=== PATIENT | male | born 1970 | race Caucasian/White ===

== ENCOUNTER 2025-01-24 20:39 | Inpatient (IN) | payer MEDICAID ==
[~2025-01-24] VITALS: Ht 172.7 cm; Wt 85.7 kg
[2025-01-25] VITALS (7 sets, daily range): BP systolic 126–159; BP diastolic 80–92; PULSE 80–87; RESP 18–20; TEMP 36.7–37.9; O2SAT 97–100
[2025-01-25 03:47] LABS: CLARITY URINE CLOUDY (CLEAR); COLOR URINE YELLOW (YELLOW); GLUCOSE URINE NEGATIVE (NEGATIVE); KETONES URINE NEGATIVE (NEGATIVE); LEUKOCYTE ESTERASE URINE 3+ (NEGATIVE); NITRITE URINE NEGATIVE (NEGATIVE); OCCULT BLOOD URINE 3+ (NEGATIVE); PH URINE 6.5 (4.5-8.0); PROTEIN URINE TRACE (NEGATIVE); SPECIFIC GRAVITY URINE 1.004 (1.005-1.030); UROBILINOGEN URINE 0.2 E.U./dL (0.2-1.0)
[2025-01-25 03:52] LABS: BASOPHILS % 0.4 % (0.0-2.0); EOSINOPHILS % 3.6 % (0.0-5.0); HEMATOCRIT. 34.6 % (42.0-52.0); HEMOGLOBIN. 11.3 g/dL (14.0-18.0); LYMPHOCYTES % 15.4 % (20.0-50.0); MEAN CORPUSCULAR HEMOGLOBIN 29.4 pg (28.0-32.0); MEAN CORPUSCULAR HGB CONC 32.7 g/dL (31.0-37.0); MEAN PLATELET VOLUME 7.2 fl (7.4-10.4); MONOCYTES % 6.7 % (2.0-8.0); NEUTROPHILS % 73.9 % (40.0-76.0); PLATELET 360 x1000/uL (130-400); RED BLOOD CELL COUNT 3.85 mill/uL (4.7-6.1)
[2025-01-25 04:07] LABS: CHLORIDE 107 mEq/L (98-107); POTASSIUM 3.9 mEq/L (3.5-5.1); SODIUM 142 mEq/L (136-145)
[2025-01-25 04:08] LABS: CARBON DIOXIDE 27 mEq/L (21-32)
[2025-01-25 04:09] LABS: CALCIUM 9.4 mg/dL (8.7-10.4)
[2025-01-25 04:13] LABS: CREATININE 0.7 mg/dL (0.6-1.3); GLUCOSE 107 mg/dL (70-105); UREA NITROGEN BLOOD 8 mg/dL (9-23)
[2025-01-25] MEDS ORDERED: ONDANSETRON HCL 4MG/2ML INJ IV PRN (05:00)
[2025-01-25] MEDS ORDERED: ACETAMINOPHEN 325MG TABLET PO PRN (05:00)
[2025-01-25] MEDS ORDERED: DOCUSATE SODIUM 100MG CAPSULE PO PRN (05:00)
[2025-01-25] MEDS ORDERED: MAGNESIUM/ALUMINUM HYDROXIDE/SIMETHICONE 30ML UDC PO PRN (05:00)
[2025-01-25] MEDS ORDERED: IPRATROPIUM/ALBUTEROL 0.5-3(2.5)MG/3ML NEB HHN PRN (05:00)
[2025-01-25] MEDS ORDERED: GUAIFENESIN 200MG/10ML SUGAR FREE UDC PO PRN (05:00)
[2025-01-25] MEDS ORDERED: DIPHENHYDRAMINE 50MG/ML VIAL IV PRN (05:00)
[2025-01-25 05:47] LABS: CREATINE KINASE 33 IU/L (46-171); PHOSPHORUS 3.4 mg/dL (2.5-4.9)
[2025-01-25 05:53] LABS: WBC URINE 50-100 /hpf (0-2)
[2025-01-25 05:54] LABS: RBC URINE 25-50 /hpf (0-2); SQUAMOUS EPITHELIAL CELL URINE NONE SEEN /lpf (RARE/1+)
[2025-01-25 05:55] LABS: BACTERIA URINE NONE SEEN; YEAST URINE 1+
[2025-01-25] MEDS ORDERED: LEVOFLOXACIN 500MG PREMIX 100 ML IV SCH (06:30)
[2025-01-25 06:50] LABS: IRON 44 ug/dL (65-175)
[2025-01-25 06:53] LABS: TOTAL IRON BINDING CAPACITY 238 ug/dl (250-425)
[2025-01-25 06:56] LABS: FOLIC ACID (FOLATE) SERUM > 20.00 ng/mL (>5.38); VITAMIN B12 SERUM 367 pg/mL (211-911)
[2025-01-25] MEDS: LEVOFLOXACIN 500MG PREMIX 100 ML IV SCH (07:07)
[2025-01-25] MEDS ORDERED: NALOXONE HCL 0.4MG/ML VIAL IV PRN (08:45)
[2025-01-25] MEDS: ENOXAPARIN 40MG/0.4ML SYR SUBCUT SCH (09:11)
[2025-01-25] MEDS: FLUCONAZOLE 100MG TABLET PO SCH (09:11)
[2025-01-25] MEDS: ACETAMINOPHEN 325MG TABLET PO PRN (09:24)
[2025-01-25 11:41] LABS: ALANINE AMINOTRANSFERASE 13 IU/L (10-49); ALBUMIN 3.8 g/dL (3.2-4.8); ASPARTATE AMINOTRANSFERASE 15 IU/L (<34); BILIRUBIN DIRECT 0.2 mg/dL (<=3.0); BILIRUBIN TOTAL 0.5 mg/dL (0.1-1.0); PROTEIN TOTAL 7.3 g/dL (6.0-8.3)
[2025-01-25] MEDS ORDERED: FLUC100T PO (14:08)
[2025-01-25] MEDS: CEFTRIAXONE 1GM/50ML 50ML IV SCH (14:39)
[2025-01-25] MEDS: IBUPROFEN 600MG TABLET PO NR (14:41)
[2025-01-25] MEDS: HYDROCODONE/ACETAMINOPHEN 5/325MG TABLET PO PRN (16:20)
[2025-01-25 17:19] LABS: CREATINE KINASE 18 IU/L (46-171)
[2025-01-26 11:48] LABS: *AMPHETAMINES SCREEN URINE NEGATIVE (NEGATIVE); *BARBITURATES SCREEN URINE NEGATIVE (NEGATIVE); *BENZODIAZEPINES SCREEN URINE NEGATIVE (NEGATIVE); *COCAINE SCREEN URINE NEGATIVE (NEGATIVE); CANNABINOID URINE SCREEN NEGATIVE (NEGATIVE); METHADONE URINE SCREEN NEGATIVE (NEGATIVE); OPIATES URINE SCREEN PRESUMPTIVE POSITIVE (NEGATIVE); PHENCYCLIDINE URINE SCREEN NEGATIVE (NEGATIVE)
[2025-01-26 11:49] LABS: ECSTASY MDMA SCREEN URINE NEGATIVE (NEGATIVE)
== END 2025-01-25 17:51 | disposition home or self-care (01) | DRG 720 ==
LOC: ER 20:39 → 8EST 01-25 03:27
PROVIDERS: ADMIT Internal Medicine; ATTEND Internal Medicine
DX: A41.9 Sepsis, unspecified organism (principal); B37.49 Other urogenital candidiasis; D64.9 Anemia, unspecified; E11.9 Type 2 diabetes mellitus without complications; I10 Essential (primary) hypertension; T83.021A Displacement of indwelling urethral catheter, initial encounter; K59.00 Constipation, unspecified; R33.8 Other retention of urine; N40.1 Benign prostatic hyperplasia with lower urinary tract symptoms; Y73.8 Miscellaneous gastroenterology and urology devices associated with adverse incidents, not elsewhere classified; Z13.6 Encounter for screening for cardiovascular disorders; Z79.899 Other long term (current) drug therapy; Y92.89 Other specified places as the place of occurrence of the external cause
CPT/HCPCS: 36415; 76872; 80048; 80076; 80305; 81003; 82550; 82607; 82746; 83036; 83540; 83550; 83605; 83735; 84100; 84145; 84153; 85025; 99285; J0696; J1650; J1956